=== PATIENT | female | born 1985 | race Caucasian/White ===

== ENCOUNTER → 2021-12-26 14:42 | Outpatient (CLI) | payer OTHER, SELFPAY ==
[2021-12-26 16:12] LABS: COVID19 -Nasal RAPID Negative (Negative)
== END ==
PROVIDERS: PCP Physician Assistant; Visit Provider Obstetrics & Gynecology
DX: Z01.812 Encounter for preprocedural laboratory examination (principal); Z20.822 Contact with and (suspected) exposure to COVID-19
CPT/HCPCS: 87635

== ENCOUNTER 2021-12-27 08:08 | Day surgery (SDC) | payer OTHER, SELFPAY ==
[2021-12-25 13:57] VITALS: BMI 26.9
[2021-12-27] VITALS (9 sets, daily range): BP systolic 122–132; BP diastolic 70–90; PULSE 71–105; RESP 11–21; TEMP 36.3–36.8; O2SAT 98–100; BMI 26.9
--- NOTE | 2021-12-27 | PATH_ITS ---
[facility] Accession Number: [id number] . 01 Material submitted: . fallopian tube - BILATERAL FALLOPIAN TUBES . 01 Diagnosis: Bilateral Fallopian Tubes, Salpingectomy: Complete cross-section of bilateral fimbriated fallopian tubes with benign paratubal cysts. MRV 01/02/2022 1114 Local . 01 Electronically signed: . Ruma Portillo MD, Pathologist NPI- [id number] . 01 Gross description: . The specimen is received in formalin labeled with the patient's name and bilateral fallopian tubes and consists of two unoriented fimbriated fallopian tubes measuring 6.2 x 0.5 cm and 5.0 x 0.7 cm, respectively. The longer fallopian tube has cr smooth serosa with multiple cystic structures near the fimbriated end measuring up to 0.3 cm in greatest dimension filled with clear serous fluid. Sectioning reveals an unremarkable stellate lumen. The shorter fallopian tube has congested smooth serosa with an area of narrowing measuring 0.3 cm in diameter. No cystic structures are identified. Sectioning reveals a stellate lumen not grossly present within the area of narrowing. Boilermaker sections are submitted as follows: . A1: Longer fallopian tube to include entire fimbriae, cysts, and cross-sections. A2: Offerle fallopian tube to include entire fimbriae and cross-sections with area of narrowing. ([id number]) /MRV 01/01/2022 1756 Local . 01 Pathologist provided ICD-10: Z30.2 . 01 CPT . 892099 Performed at: 01 [facility] [address] [place] [address] [address], [place], [place] [id number] MD Gianni Richardson MD Phone: [phone]
[2021-12-27] MEDS: LACTATED RINGERS 1,000 ML 42 ML IV ×2 (08:35→11:08)
--- NOTE | 2021-12-27 09:36 | PM.PREOP ---
Pre-operative Note COVID-19 COVID-19 status: Negative Result date/Date tested (Pos, Neg/Pending): 12/26/21 Criteria for continued procedure: Non-surgical alternatives not available or appropriate per current SOC Interval Note History & Physical reviewed/Exam performed by Physician: Yes Changes to H&P: No
--- NOTE | 2021-12-27 10:07 | SUR.OPER ---
Addendum entered by Sahnta Espinal R.N. 12/27/21 10:08: Bilateral arms tucked. Original Note: Lithotomy on padded OR bed, head on pillow, arms secured on padded arm boards at <90 degrees abduction. Legs secured in padded yellow fins stirrups.
[2021-12-27] MEDS: BUPIVACAINE 0.5% W/ EPI (PF) 30 ML VIAL INJ (10:21)
--- NOTE | 2021-12-27 10:56 | P.OP_ITS ---
Operative Date/Time/Diagnoses Date of procedure: 12/27/21 Time of procedure: 09:50 Pre-op diagnosis: Embedded Intrauterine Device Request for sterilization Post-op diagnosis: same Procedure & Clinicians Procedure: Procedures Operation Date: 12/27/21 09:15 Actual Procedure Side Surgeon p Laparoscopic Salpingectomy Bilateral Cahd Cuello MD p IUD removal Chad Cuello MD Indications: Gianluca is a 36-year-old , LMP approximately 6 years ago at the time she had a Mirena IUD inserted.? She presents today in referral from her primary care provider, Steph Javier PA-C who attempted to remove the Mirena IUD but despite best efforts, was unable to do so despite the fact that the str ings are visible at the cervical os.? Patient's original intent was to have another Mirena IUD inserted but after the difficulties in getting it out in likelihood that this is an embedded IUD in the wall of the uterus, she would like to instead proceed with sterilization via laparoscopic bilateral salpingectomy.? She presents today for her scheduled surgery. Surgeon: Chad Cuello Anesthesia Type: General Operative Notes Findings: Normal pelvis. The upper abdomen was normal to laparoscopic inspection. Closure Type: primary Specimen(s): left tube and right tube Estimated blood loss (mL): 5 Blood products transfused: none Procedure in detail: With the patient under satisfactory general anesthesia in the modified dorsal li thotomy position, the perineum, vagina, and abdomen were prepped and draped for IUD removal and laparoscopic bilateral salpingectomy. A pre-surgical safety time-out was then taken in accordance with [facility] Main OR protocols. A bivalve speculum was inserted in the vagina and the cervix visualized. IUD strings were not visible therefore a single tooth tenaculum was applied to the cervix and the cervix gently dilated to 4 mm. An alligator clamp was then introduced through the endocervical canal into the endometrial cavity and an intact Mirena IUD was removed with slight resistance noted. The tenaculum was removed and an Allis clamp was applied to the right puncture site to affect complete hemostasis. The umbilicus was then infiltrated with 0.5% Marcaine with epinephrine and 1 cm vertical incision was made in the inferior aspect of the umbilicus. Veress needle was used to insufflate the abdomen with carbon dioxide and once appropriately insufflated, 5 mm bladeless trocar and sleeve were inserted through the incision. Proper placement of the sleeve was confirmed with laparoscopic visualization and insufflation of the abdomen continued. A 2nd and 3rd 5 mm laparoscopic port were placed in the right and left mid quadrants using a similar technique and using a 3 puncture technique, the abdomen and pelvis were visualized with the findings as noted above. The distal aspect of the left fallopian tube was then grasped with a grasping forceps and using a Power Seal device, fimbria ovarica was coagulated and divided the dissection using the Power Seal continuing across the mesosalpinx to the cornua where the base fallopian tube was coagulated and divided. The left fallopian tube was then removed through one of the ports and submitted pathologic specimen. Attention was then turned to the right adnexa with distal tube grasped with a grasping forcep. The Power Seal device was then used to coagulate fimbria ovarica and the dissection was carried across the mesosalpinx to the cornua where the fallopian tube on the right side was amputated at the cornua following coagulation proximal tube the Power Seal device. Pelvis was inspected and there were no abnormalities noted following bilateral salpingectomy. The pneumoperitoneum was then vented and the ports removed from the abdominal wall. Port incisions were then closed with 4-0 Monocryl using inverted interrupted stitches and skin glue was applied. Appropriate dressings were then applied, patient was awakened, and transferred to the PACU for a period of observation after having tolerated the procedure well. Complications: none Post-operative Condition: stable Disposition: PACU Plan for aftercare: Routine post-op care with post-op visit scheduled for two weeks following surgery.
[2021-12-27] MEDS: OXYCODONE IR 5 MG TABLET PO (11:08)
[2021-12-27] MEDS: HYDROMORPHONE 2 MG INJ IV (11:08)
[2021-12-27] MEDS: ONDANSETRON 4 MG/2 ML INJ IV (11:08)
== END 2021-12-27 11:50 | disposition home or self-care (01) ==
PROVIDERS: PCP Physician Assistant; Referring Provider Obstetrics & Gynecology; Visit Provider Obstetrics & Gynecology
PROC: 0UT74ZZ Resection of Bilateral Fallopian Tubes, Percutaneous Endoscopic Approach (ICD-10-PCS; CPT 58661; principal; 2021-12-27 09:15)
PROC: 0UDB8ZZ Extraction of Endometrium, Via Natural or Artificial Opening Endoscopic (ICD-10-PCS; CPT 58558; 2021-12-27 09:15)
DX: Z30.2 Encounter for sterilization (principal); Z30.432 Encounter for removal of intrauterine contraceptive device; N83.8 Other noninflammatory disorders of ovary, fallopian tube and broad ligament
CPT/HCPCS: 58661; 58301; J1100; J1170; J1885; J2250; J2405; J3010

== ENCOUNTER 2023-06-26 09:53 | Day surgery (SDC) | payer OTHER, SELFPAY ==
[2023-06-25 15:20] VITALS: BMI 26.9
--- NOTE | 2023-06-26 | PATH_ITS ---
[facility] Accession Number: [id number] No. of containers..02 Tissue . 01 Material submitted: . PART A: endocervix - ENDOCERVICAL CURETTINGS PART B: endometrium - ENDOMETRIAL CURETTINGS . 01 Diagnosis: A. ENDOCERVIX, CURETTINGS: Benign endocervical tissue. Scant weakly proliferative endometrium. No endocervical glandular dysplasia, endometrial cytologic atypia, or malignancy. . B. ENDOMETRIUM, CURETTINGS: Weakly proliferative endometrium. No atypical hyperplasia, and no malignancy. V 06/30/2023 1250 Local . 01 Electronically signed: . Ruma Portillo MD, Pathologist NPI- [id number] . 01 Gross description: . Part A: ENDOCERVICAL CURETTINGS: Received in formalin are minute fragments of mucoid and hemorrhagic material measuring 1.5 x 1.5 x 0.3 cm in aggregate. Submitted in toto in 1 cassette. Part B: ENDOMETRIAL CURETTINGS: Received in formalin are minute fragments of mucoid and hemorrhagic material measuring 1.5 x 1.5 x 0.3 cm in aggregate. Submitted in toto in 1 cassette. /RAMONA 06/29/2023 1759 Local . 01 Pathologist provided ICD-10: N93.9 . 01 CPT . 179004, 864004 Specimen Comment: A courtesy copy of this report has been sent to [phone] Performed at: [facility] [address] [place] [id number] MD Gianni Richardson MD Phone: [phone]
[2023-06-26 10:10] VITALS: BP 127/85; PULSE 82; RESP 16; TEMP 36.4; O2SAT 100; BMI 25.9
[2023-06-26] MEDS: LACTATED RINGERS 1,000 ML 42 ML IV ×2 (10:14→14:15)
--- NOTE | 2023-06-26 13:33 | PM.PREOP ---
Pre-operative Note COVID-19 COVID-19 status: Not tested Interval Note History & Physical reviewed/Exam performed by Physician: Yes Changes to H&P: No
[2023-06-26] MEDS: ACETAMINOPHEN IV 1,000 MG/100 ML VIAL 400 MG IV (14:00)
--- NOTE | 2023-06-26 14:09 | SUR.OPER ---
Lithotomy on padded OR bed, head on pillow, arms secured on padded arm boards at <90 degrees abduction. Legs secured in padded yellow fins stirrups.
[2023-06-26] MEDS: SILVER NITRATE STICK 1 EACH TOP (14:36)
[2023-06-26 14:46] VITALS: BP 117/80; PULSE 87; RESP 18; TEMP 36.6; O2SAT 95
--- NOTE | 2023-06-26 14:47 | P.OP_ITS ---
Operative Date/Time/Diagnoses Date of procedure: 06/26/23 Time of procedure: 14:00 Pre-op diagnosis: Menorrhagia Post-op diagnosis: other (Same as above, bicornuate uterus) Procedure & Clinicians Procedure: Procedures Operation Date: 06/26/23 09:45 Actual Procedure Side Surgeon p Dilation and curettage of the uterus and hysteroscopy Chad Cuello MD Indications: Gianluca is a 38-year-old with progressively heavy menses since her IUD was removed and she had bilateral salpingectomy performed in December 2021. Her Mirena IUD was removed because of pain after attempts to remove the IUD by her primary care provider were unsuccessful because the IUD itself was imbedded. Patient's periods have remained regular but are increasingly heavy and disruptive to her life. Currently her menses last at least 4 days but sometimes longer with at least 3 of those days spent passing large clots with bright red bleeding and severe cramping. Patient does not want to attempt to use an IUD again for fear that it will become imbedded again. Patient has had a sterilization procedure performed previously. She denies intermenstrual spotting or postcoital spotting and her Pap is both normal and current. She expresses a desire to explore endometrial ablation. Because of the heavy and disruptive periods that the patient is experiencing, she would like to proceed with endometrial ablation. She has not a good candidate for IUD insertion due to the fact that she is previously experienced an embedded IUD requiring surgical removal in the operating room. Patient has had a bilateral salpingectomy and after discussion of all options the patient very much wishes to proceed with endometrial ablation via NovaSure. She presents today for her scheduled surgery. Surgeon: Chad Cuello Anesthesia Type: General Operative Notes Findings: The NovaSure endometrial ablation device could not be deployed because of inadequate cavity width. Hysteroscopy revealed that the patient has a deeply bicornuate uterus with the intrauterine anatomy therefore incompatible with the NovaSure endometrial ablation. Closure Type: not applicable Specimen(s): endometrial curettings and other (Endocervical curettings) Estimated blood loss (mL): 15 Blood products transfused: none Procedure in detail: With the patient under general LMA in the modified dorsal lithotomy position, the perineum, vagina, and lower abdomen were prepped and draped in the usual fashion for D&C with endometrial ablation. A pre-surgical safety time-out was then taken in accordance with [facility] Main OR protocols. A bivalve speculum was inserted in the vagina and the cervix visualized. The anterior lip of the cervix was grasped with a single-tooth tenaculum and the endocervical canal was then dilated to 6 mm diameter. Sharp curettage of the endocervix and endometrial cavity was then accomplished in preparations for NovaSure endometrial ablation. The endometrial cavity was then sounded to 5.5 cm and the NovaSure device introduced into the endometrial cavity. Deployment of the NovaSure device however was impossible because the width of the deployed device was less than 2 cm. Hysteroscope was placed through the endocervical canal into the endometrial cavity and the cavity was visualized. Visualization of the endometrial cavity revealed that the patient a bicornuate uterus with two deep horns and the septum dividing the horns extending to within 1-2 cm of the endocervical os. The tenaculum was then removed from the anterior lip of the cervix and no bleeding was encountered. The speculum was then removed from the vagina and the patient awakened from anesthesia. She was then transferred to the PACU for a period of observation and recovery having tolerated the procedure well. Complications: other (Unable to performed old surgery due to patient anatomy) Post-operative Condition: stable Disposition: PACU Plan for aftercare: Routine postop care with follow-up planned for 2 weeks postop at which time will discuss remaining options for managing her menorrhagia since she has not a candidate for either ablation or IUD placement.
[2023-06-26 14:51] VITALS: BP 119/80; PULSE 97; RESP 12; O2SAT 98
[2023-06-26 14:56] VITALS: BP 123/75; PULSE 88; RESP 16; O2SAT 96
[2023-06-26 15:02] VITALS: BP 118/82; PULSE 73; RESP 12; O2SAT 95
[2023-06-26 15:26] VITALS: BP 121/77; PULSE 68; RESP 18; TEMP 36.6; O2SAT 98
== END 2023-06-26 15:30 | disposition home or self-care (01) ==
PROVIDERS: PCP Physician Assistant; Referring Provider Obstetrics & Gynecology; Visit Provider Obstetrics & Gynecology
PROC: 0U5B8ZZ Destruction of Endometrium, Via Natural or Artificial Opening Endoscopic (ICD-10-PCS; CPT 58563; principal; 2023-06-26 09:45)
DX: N92.0 Excessive and frequent menstruation with regular cycle (principal); Q51.3 Bicornate uterus
CPT/HCPCS: 58558; J0136; J1100; J1885; J2250; J2405; J2704; J3010